=== PATIENT | female | born 1930 | race Caucasian/White ===

== ENCOUNTER 2017-02-13 04:33 | Observation (INO) | payer MEDICARE ==
[2017-02-08 13:55] LABS: HEMATOCRIT 38.2 % (36.0-48.0); HEMOGLOBIN 12.4 g/dL (12.0-16.0)
[2017-02-08 14:13] LABS: BUN (BLOOD UREA NITROGEN) 25 MG/DL (6-23); CHLORIDE, SERUM 105 MMOL/L (96-112); CO2 (CARBON DIOXIDE) 33 MMOL/L (24-34); CREATININE 0.94 MG/DL (0.55-1.02); GFR AFRICAN AMERICAN 63 ML/MIN (>=60); GFR NON AFRICAN AMERICAN 55 ML/MIN (>=60); GLUCOSE, SERUM 108 MG/DL (60-99); POTASSIUM, SERUM 3.8 MMOL/L (3.5-5.3)
[2017-02-08 14:14] LABS: CALCIUM, SERUM 8.9 MG/DL (8.5-10.4); SODIUM, SERUM 143 MMOL/L (135-148)
--- NOTE | ~2017-02-13 | OP ---
Record Of Operation [facility] [address] [place]. [address] NAME: SACHIN CRAWFORD : 30 STATUS : ADM Isai PAT#: [id number] AGE: 87 ADM/REG DATE : 02/13/17 MR#: [id number] REPORT SERV DATE: 02/13/17 DICTATED BY: REED MONTIEL DATE: 02/13/17 REPORT STATUS : Draft TRANSCRIBED BY: MODL DATE: 02/13/17 DATE OF PROCEDURE: 02/13/2017 PREOPERATIVE DIAGNOSIS: Right-sided L4-5 spinal stenosis with radiculopathy. POSTOPERATIVE DIAGNOSIS: Right-sided L4-5 spinal stenosis with radiculopathy. PROCEDURE: Microscopic and navigation-assisted right L4-5 hemilaminotomy, foraminotomy, partial facetectomy. FIRE CHIEF: Marvin Salazar. ANESTHESIA: General. BLOOD LOSS: 10 mL. INDICATION FOR SURGERY: An 87-year-old very active female who is still living alone, driving her own car, doing her own housekeeping, etc. with back and right hip/leg pain. Mostly the hip and leg pain is worse with standing and walking, better with sitting. Plain x-rays are actually very good for her age. There are no instability deformities. There is a minimal grade 1 spondylolisthesis, but there is no instability with flexion and extension. MRI shows lateral recess stenosis with ligamentum flavum and facet hypertrophy. There was some protrusion of the disk and it seems that is somewhat calcified and may be causing some narrowing, but overall it is predominantly a lateral recess stenosis that is causing the overall symptoms. Patient brought to surgery for a right L4-5 hemilaminotomy, foraminotomy, and microdiskectomy if necessary. Partial facetectomy will be included as needed. Risks, benefits, alternatives, expectations have been explained. Consent form has been signed. DESCRIPTION OF PROCEDURE: Antibiotic prophylaxis given. Neurophysiology monitoring leads inserted. The patient brought to the operative suite. General anesthetic including endotracheal intubation was administered. She was placed prone on a Kenroy spine frame. Bony prominences were carefully padded. Thoracolumbar spine scrubbed with Hibiclens solution. DuraPrep was painted. Sterile drapes applied. Because of the complexity of surgery, the need to identify correct level of surgery intraoperatively, as well as desire to carry out the safest and most precise dissection, I felt intraoperative navigation was mandatory. A small stab wound was carried out a left posterior superior iliac spine. A percutaneous pin with navigational frame attached was inserted into the PSIS. Intraoperative CT scan with O-arm obtained, CT information used to register the navigational system. With navigational assistance, I identified the amount of lamina of L4 I needed to remove in order to reach the cephalad boundary of the disk space. I also determined the amount of medial facet joint I needed to remove in order to reach the lateral aspect of the thecal sac. A 3 mm ben bur as well as 2 mm Kerrison rongeur was used to remove 70% of the Record Of Operation [facility] [id number] [place]. [address] NAME: SACHIN CRAWFORD : 30 STATUS : ADM Isai PAT#: [id number] AGE: 87 ADM/REG DATE : 02/13/17 MR#: [id number] REPORT SERV DATE: 02/13/17 DICTATED BY: REED MONTIEL DATE: 02/13/17 REPORT STATUS : Draft TRANSCRIBED BY: MODL DATE: 02/13/17 lamina of L4, approximately 25-30% of the medial facet joint of L4-5. The hypertrophy ligamentum flavum and facet joint were debrided with the rongeurs and complete decompression of the lateral thecal sac, the central canal, and the medial foramen were carried out. The wound was irrigated. Complete decompression was without incident. There was some mild degree of calcified disk protrusion, which was not causing any significant issues once the previous decompression was completed. There was no disk for actual diskectomy removal. After final irrigation, the retractor was removed. A single interrupted #1 Vicryl suture used for fascial closure. The subcutaneous tissue closed with 2-0 Vicryl suture, 2-0 vertical mattress nylon suture used for skin closure. Sterile dressings applied. The patient awakened, extubated, and taken to the recovery room in satisfactory condition having tolerated the procedure well. Sponge, needle, and instrument counts were correct. No intraoperative complications noted. NISSA/WILLY Reed Montiel D.O. / [id number] CC: Марина Garcia LISA M *
[~2017-02-13 04:33] MED LIST: DIOVAN HC1 PO; PRILOSEC40 MG PO; RESTASIS OPH; SYN075 PO; ZOCOR80 MG PO
[2017-02-14] MEDS ORDERED: METHOC500B PO (13:44)
[2017-02-14] MEDS ORDERED: NORCO1 TA1 PO (13:45)
== END 2017-02-14 14:39 | disposition home or self-care (01) ==
LOC: SDC 04:33 → PACU 08:41 → 3SO 09:49
PROVIDERS: Orthopaedic Surgery Orthopaedic Surgery of the Spine
PROC: 01NB0ZZ Release Lumbar Nerve, Open Approach (ICD-10-PCS; principal; 2017-02-13 05:45)
DX: M48.06 Spinal stenosis, lumbar region (principal); M51.16 Intervertebral disc disorders with radiculopathy, lumbar region; I10 Essential (primary) hypertension; E78.5 Hyperlipidemia, unspecified; M19.90 Unspecified osteoarthritis, unspecified site; K21.9 Gastro-esophageal reflux disease without esophagitis; E03.9 Hypothyroidism, unspecified; Z79.2 Long term (current) use of antibiotics; Z79.899 Other long term (current) drug therapy; Z90.710 Acquired absence of both cervix and uterus; Z90.49 Acquired absence of other specified parts of digestive tract; Z90.89 Acquired absence of other organs; Z98.890 Other specified postprocedural states; Z96.652 Presence of left artificial knee joint
CPT/HCPCS: 80048; 85014; 85018; 88304; 93005; 96374; 96375; 96376; 97116-GP; 97161-GP; A9270-GY; G0378; G8978-CK-GP; G8979-CI-GP; J0690; J2250; J2270; J2274; J2405; J2710; J3010